=== PATIENT | female | born 1970 | race Caucasian/White ===

== ENCOUNTER 2016-06-13 20:27 | Emergency (ER) | payer BC ==
[~2016-06-13] VITALS: Ht 177.8 cm; Wt 108.9 kg
[2016-06-13 20:30] VITALS: BP 155/78
[2016-06-13] MEDS ORDERED: NEOMY/BACITR/POLYMYXIN OINT PACKET. TP ONE (20:45)
[2016-06-13] MEDS ORDERED: DIPHTH,PERTUSS(ACELL),TET TOX 0.5 ML DISP.SYRIN. VAX IM ONE (20:45)
[2016-06-13] MEDS ORDERED: CEPH500T PO (20:50)
--- NOTE | 2016-06-13 20:50 | PHYS DOC ---
Past Medical History Past Medical History: No Pertinent History Past Surgical History: No Surgical History Alcohol Use: None Drug Use: None Adult General Chief Complaint Chief Complaint: LACERATION/AVULSION HPI HPI Patient is a 45 year old female who presents with puncture wound to the right heel, patient states she was walking in her and unfinished basement today when she stepped on unknown object that went in and out of her heel. Patient had no shoes on. Tetanus is not up-to-date. She is requesting antibiotics. Review of Systems Review of Systems Constitutional: Denies fever or chills [] Eyes: Denies change in visual acuity, redness, or eye pain [] HENT: Denies nasal congestion or sore throat [] Musculoskeletal: Denies back pain or joint pain [] Integument: Puncture wound to the right heel Neurologic: Denies headache, focal weakness or sensory changes [] Endocrine: Denies polyuria or polydipsia [] Allergies Allergies Allergies Coded Allergies Type Severity Reaction Last Updated Verified No Known Drug Allergies 06/13/16 No Physical Exam Physical Exam Constitutional: Well developed, well nourished, no acute distress, non-toxic appearance. [] HENT: Normocephalic, atraumatic, bilateral external ears normal, oropharynx moist, no oral exudates, nose normal. [] Eyes: PERRLA, EOMI, conjunctiva normal, no discharge. [] Skin: Right heel with puncture wound approximately 0.2 x 0.2 cm. No bleeding. Back: No tenderness, no CVA tenderness. [] Extremities: No tenderness, no cyanosis, no clubbing, ROM intact, no edema. [] Neurologic: Alert and oriented X 3, normal motor function, normal sensory function, no focal deficits noted. [] Psychologic: Affect normal, judgement normal, mood normal. [] Current Patient Data Vital Signs Vital Signs Date Time Temp Pulse Resp B/P Pulse Ox O2 Delivery O2 Flow Rate FiO2 06/13/16 20:30 97.9 91 16 96 Room Air 97.9 EKG EKG [] Radiology/Procedures Radiology/Procedures [] Course & Med Decision Making Course & Med Decision Making Pertinent Labs and Imaging studies reviewed. (See chart for details) Patient has a puncture wound to the right heel. The area was cleaned. Neosporin applied to the area. Given tetanus in the ED. She requested antibiotics, cephalexin was given to her. Instructed to keep the area clean and dry. Follow- up with her own PCP in 1-2 weeks as needed. Provided wound care instructions and return precautions. Stanislaw Disclaimer Stanislaw Disclaimer This electronic medical record was generated, in whole or in part, using a voice recognition dictation system. Departure Departure Impression: Primary Impression: Puncture wound Disposition: HOME, SELF-CARE Condition: STABLE Patient Instructions: Puncture Wound Additional Instructions: You have a puncture wound to the right heel, keep it clean and dry. You can wash it with soap and water. Cover it if it's bleeding or draining. Complete the prescribed antibiotics. Monitor it for signs and symptoms of worsening condition including increased redness, warmth or odor drainage from the area and return to the ED if they occur. Scripts Cephalexin 500 Mg Tablet1 Tab PO TID #30 TAB Prov:JAKI PARRA APRN 06/13/16 JAKI PARRA APRN Jun 13, 2016 20:50
== END 2016-06-13 21:03 | disposition home or self-care (01) ==
LOC: ER 20:27
DX: S91.331A Puncture wound without foreign body, right foot, initial encounter (principal); W22.8XXA Striking against or struck by other objects, initial encounter; Y93.01 Activity, walking, marching and hiking; Y92.89 Other specified places as the place of occurrence of the external cause; Y99.8 Other external cause status
CPT/HCPCS: 90471; 90715; 99283-25

== ENCOUNTER 2017-05-02 10:20 | Emergency (ER) | payer BC ==
[2017-05-02] MEDS: ONDANSETRON ODT 4 MG TAB.RAPDIS. PO (11:25)
[2017-05-02] MEDS: MORPHINE SULFATE 10 MG/ML VIAL. IM (11:27)
[2017-05-02] MEDS: LIDOCAINE 2%/EPI 1:100,000 20 ML VIAL. IJ (11:28)
== END 2017-05-02 13:13 | disposition home or self-care (01) ==
LOC: ER 10:20
DX: T81.31XA Disruption of external operation (surgical) wound, not elsewhere classified, initial encounter (principal); E78.00 Pure hypercholesterolemia, unspecified; E03.9 Hypothyroidism, unspecified; W01.0XXA Fall on same level from slipping, tripping and stumbling without subsequent striking against object, initial encounter; Y93.89 Activity, other specified; Y99.8 Other external cause status
CPT/HCPCS: 12020; 96372; 99284; J2270; J3490; Q0162

== ENCOUNTER 2017-06-08 16:35 | Inpatient (IN) | payer BC ==
[2017-06-08 16:51] LABS: URINE HCG POC HCG NEGATIVE (Negative)
[2017-06-08 16:55] LABS: BILIRUBIN,URINE NEGATIVE (NEG); CLARITY,URINE CLEAR; COLOR,URINE YELLOW; GLUCOSE,URINE NEGATIVE (NEG); NITRITE,URINE NEGATIVE (NEG); PROTEIN,URINE NEGATIVE (NEG-TRACE); UROBILINOGEN,URINE 0.2 mg/dL (0.2 mg/dL)
[2017-06-08 17:04] LABS: ADD MAN DIFF? NO
[2017-06-08 17:06] LABS: BASO # 0.1 x10^3/uL (0.0-0.2); BASO % 1 % (0-3); EOS # 0.1 x10^3/uL (0.0-0.7); EOS % 1 % (0-3); HEMATOCRIT 40.7 % (36.0-47.0); HEMOGLOBIN 13.6 g/dL (12.0-15.5); LYMPH # 1.5 x10^3/uL (1.0-4.8); LYMPH % 11 % (24-48); MEAN CORPUSCULAR HEMOGLOBIN 27 pg (25-35); MEAN CORPUSCULAR HGB CONC 34 g/dL (31-37); MEAN CORPUSCULAR VOLUME 82 fL (79-100); MONO # 0.8 x10^3/uL (0.0-1.1); MONO % 6 % (0-9); NEUT # 11.2 x10^3uL (1.8-7.7); NEUT % 82 % (31-73); PLATELET COUNT 372 x10^3/uL (140-400); RED BLOOD COUNT 4.96 x10^6/uL (3.50-5.40); RED CELL DISTRIBUTION WIDTH 13.9 % (11.5-14.5); WHITE BLOOD COUNT 13.8 x10^3/uL (4.0-11.0)
[2017-06-08 17:11] LABS: BACTERIA,URINE FEW /HPF (0-FEW); RBC,URINE 20-40 /HPF (0-2); SQUAMOUS EPITHELIAL CELL,UR MOD /LPF; WBC,URINE 0 /HPF (0-4); YEAST,URINE PRESENT /HPF
[2017-06-08 17:16] LABS: PARTIAL THROMBOPLASTIN TIME 29 SEC (24-38); PROTHROMBIN TIME PATIENT 12.5 SEC (11.7-14.0)
[2017-06-08 17:32] LABS: ANION GAP 8 (6-14); BLOOD UREA NITROGEN 15 mg/dL (7-20); BUN/CREATININE RATIO 19 (6-20); CARBON DIOXIDE 28 mmol/L (21-32); CHLORIDE 101 mmol/L (98-107); CREATININE 0.8 mg/dL (0.6-1.0); GFR 77.9; GLUCOSE 100 mg/dL (70-99); POTASSIUM 4.3 mmol/L (3.5-5.1); SODIUM 137 mmol/L (136-145)
[2017-06-08] MEDS: fentaNYL PF VIAL 100 MCG/2 ML VIAL IV (17:37)
[2017-06-08] MEDS: diphenhydrAMINE 50 MG/ML VIAL IVP (17:37)
[2017-06-08] MEDS: ONDANSETRON PF 4 MG/2 ML VIAL. IV (17:37)
[2017-06-08 17:38] LABS: ALBUMIN 3.7 g/dL (3.4-5.0); ALK PHOS 64 U/L (46-116); ALT (SGPT) 37 U/L (14-59); AST (SGOT) 26 U/L (15-37); MAGNESIUM 1.8 mg/dL (1.8-2.4); TOTAL BILIRUBIN 0.6 mg/dL (0.2-1.0); TOTAL PROTEIN 7.5 g/dL (6.4-8.2)
[2017-06-08] MEDS ORDERED: ONDANSETRON PF 4 MG/2 ML VIAL. IV (18:00)
[2017-06-08] MEDS ORDERED: CONTRAST GIVEN MC (18:15)
[2017-06-08] MEDS: IOHEXOL 300 MG/ML 100ML VIAL. IV (18:15)
[2017-06-08] MEDS: ACETAMINOPHEN 500 MG TABLET PO (18:43)
[2017-06-08] MEDS: IV NORMAL SALINE 1000ML BAG 1,000 ML IV ×2 (18:44)
[2017-06-08] MEDS: PIPERACILLIN/TAZOBACTAM 3.375 GM in IV NORMAL SALINE 100ML 100 ML IV (18:45)
[2017-06-08] MEDS ORDERED: PIP/TAZO PER PHARMACY MC (19:15)
[2017-06-08] MEDS: FLUCONAZOLE 100 MG TABLET. PO (19:38)
[2017-06-08 19:54] LABS: LACTIC ACID 1.1 mmol/L (0.4-2.0)
[2017-06-08] MEDS: ENOXAPARIN 40 MG/0.4 ML SYRINGE. SQ (21:00)
[2017-06-08] MEDS: VANCOMYCIN 2 GM in IV 1/2 NORMAL SALINE 500 ML IV (21:09)
[2017-06-09] MEDS: PIPERACILLIN/TAZOBACTAM 3.375 GM in IV NORMAL SALINE 50ML 50 ML IV ×4 (00:06→18:34)
[2017-06-09] MEDS: fentaNYL PF VIAL 100 MCG/2 ML VIAL IV ×3 (00:12→15:33)
[2017-06-09] MEDS: VANCOMYCIN PER PHARMACY MC ×4 (02:33→22:58)
[2017-06-09 04:46] LABS: ADD MAN DIFF? NO
[2017-06-09 04:49] LABS: BASO # 0.1 x10^3/uL (0.0-0.2); BASO % 1 % (0-3); EOS # 0.1 x10^3/uL (0.0-0.7); EOS % 1 % (0-3); HEMATOCRIT 37.3 % (36.0-47.0); HEMOGLOBIN 12.4 g/dL (12.0-15.5); LYMPH # 1.8 x10^3/uL (1.0-4.8); LYMPH % 18 % (24-48); MEAN CORPUSCULAR HEMOGLOBIN 27 pg (25-35); MEAN CORPUSCULAR HGB CONC 33 g/dL (31-37); MEAN CORPUSCULAR VOLUME 82 fL (79-100); MONO # 0.9 x10^3/uL (0.0-1.1); MONO % 9 % (0-9); NEUT # 7.1 x10^3uL (1.8-7.7); NEUT % 71 % (31-73); PLATELET COUNT 317 x10^3/uL (140-400); RED BLOOD COUNT 4.53 x10^6/uL (3.50-5.40); RED CELL DISTRIBUTION WIDTH 14.1 % (11.5-14.5); WHITE BLOOD COUNT 9.9 x10^3/uL (4.0-11.0)
[2017-06-09 05:14] LABS: ANION GAP 8 (6-14); BLOOD UREA NITROGEN 12 mg/dL (7-20); CALCIUM 8.5 mg/dL (8.5-10.1); CARBON DIOXIDE 26 mmol/L (21-32); CHLORIDE 105 mmol/L (98-107); CREATININE 0.9 mg/dL (0.6-1.0); GLUCOSE 97 mg/dL (70-99); SODIUM 139 mmol/L (136-145)
[2017-06-09] MEDS: VANCOMYCIN 1.5 GM in IV 1/2 NORMAL SALINE 500 ML IV ×3 (05:30→22:56)
[2017-06-09] MEDS: LACTOBACILLUS RHAMNOSUS GG 1 CAPSULE. PO ×2 (07:50→20:15)
[2017-06-09] MEDS: diazePAM 5 MG TABLET PO ×2 (09:15→13:27)
[2017-06-09 13:18] LABS: MRSA BY PCR Negative (Negative)
[2017-06-09] MEDS ORDERED: ONDANSETRON PF 4 MG/2 ML VIAL. IV (19:45)
[2017-06-09] MEDS ORDERED: oxyCODONE/APAP 5/325 1 TAB TABLET PO (19:45)
[2017-06-09] MEDS ORDERED: fentaNYL PF VIAL 100 MCG/2 ML VIAL IV (19:45)
[2017-06-09] MEDS: ENOXAPARIN 40 MG/0.4 ML SYRINGE. SQ (20:14)
[2017-06-09] MEDS: ACETAMINOPHEN 325 MG TABLET. PO (20:15)
[2017-06-09 22:47] LABS: VANC TR 17.5 mcg/mL (10.0-20.0)
[2017-06-10] MEDS: PIPERACILLIN/TAZOBACTAM 3.375 GM in IV NORMAL SALINE 50ML 50 ML IV ×4 (00:56→17:14)
[2017-06-10] MEDS: VANCOMYCIN 1.5 GM in IV 1/2 NORMAL SALINE 500 ML IV ×3 (05:37→22:09)
[2017-06-10] MEDS: LACTOBACILLUS RHAMNOSUS GG 1 CAPSULE. PO ×2 (08:57→20:37)
[2017-06-10] MEDS: VANCOMYCIN PER PHARMACY MC (14:24)
[2017-06-10 15:22] LABS: ADD MAN DIFF? NO
[2017-06-10 15:38] LABS: ANION GAP 7 (6-14); BASO # 0.1 x10^3/uL (0.0-0.2); BASO % 1 % (0-3); BLOOD UREA NITROGEN 11 mg/dL (7-20); CARBON DIOXIDE 28 mmol/L (21-32); CHLORIDE 103 mmol/L (98-107); CREATININE 0.9 mg/dL (0.6-1.0); EOS # 0.3 x10^3/uL (0.0-0.7); EOS % 3 % (0-3); GLUCOSE 102 mg/dL (70-99); HEMATOCRIT 38.1 % (36.0-47.0); HEMOGLOBIN 12.6 g/dL (12.0-15.5); LYMPH # 1.9 x10^3/uL (1.0-4.8); LYMPH % 21 % (24-48); MEAN CORPUSCULAR HEMOGLOBIN 27 pg (25-35); MEAN CORPUSCULAR HGB CONC 33 g/dL (31-37); MEAN CORPUSCULAR VOLUME 83 fL (79-100); MONO # 0.9 x10^3/uL (0.0-1.1); MONO % 10 % (0-9); NEUT # 6.2 x10^3uL (1.8-7.7); NEUT % 66 % (31-73); PLATELET COUNT 322 x10^3/uL (140-400); RED BLOOD COUNT 4.59 x10^6/uL (3.50-5.40); RED CELL DISTRIBUTION WIDTH 14.1 % (11.5-14.5); SODIUM 138 mmol/L (136-145); WHITE BLOOD COUNT 9.4 x10^3/uL (4.0-11.0)
[2017-06-10] MEDS: ENOXAPARIN 40 MG/0.4 ML SYRINGE. SQ (20:38)
[2017-06-11] MEDS: PIPERACILLIN/TAZOBACTAM 3.375 GM in IV NORMAL SALINE 50ML 50 ML IV ×3 (01:03→12:00)
[2017-06-11] MEDS: VANCOMYCIN 1.5 GM in IV 1/2 NORMAL SALINE 500 ML IV (06:21)
[2017-06-11] MEDS: LACTOBACILLUS RHAMNOSUS GG 1 CAPSULE. PO (08:23)
[2017-06-11] MEDS: DOXYCYCLINE HYCLATE 100 MG TABLET PO (08:23)
[2017-06-11] MEDS: ACETAMINOPHEN 325 MG TABLET. PO (08:23)
[2017-06-11] MEDS: VANCOMYCIN PER PHARMACY MC (12:24)
== END 2017-06-11 13:38 | disposition home or self-care (01) | DRG 872 ==
LOC: ER 16:35 → 5 NORTH 19:01
DX: A41.9 Sepsis, unspecified organism (principal); E03.9 Hypothyroidism, unspecified; L02.31 Cutaneous abscess of buttock; L03.317 Cellulitis of buttock; B96.89 Other specified bacterial agents as the cause of diseases classified elsewhere; E04.1 Nontoxic single thyroid nodule; E78.00 Pure hypercholesterolemia, unspecified; E78.5 Hyperlipidemia, unspecified; N76.0 Acute vaginitis; Z85.820 Personal history of malignant melanoma of skin; Z91.81 History of falling
CPT/HCPCS: 36415; 70450; 70496; 70498; 70544; 70551; 76536; 80048; 80053; 80202; 81001; 81025; 83605; 83735; 85025; 85610; 85730; 87040; 87641; 96365; 96366; 96375; 99285; 99285-25; J1200; J2405; J2543; J3010; J3370; J7030; Q9967